=== PATIENT | female | born 1930 | race Caucasian/White ===

== ENCOUNTER 2018-03-12 02:44 | Emergency (ER) | payer MEDICARE ==
[~2018-03-12] VITALS: Ht 154.9 cm; Wt 53.1 kg
--- NOTE | 2018-03-12 03:00 | NUR ---
Pt bib ambulance with a bloody laceration on her scalp following an unwitnessed fall in her apartment. She is A, O/4, walks with a cane on baseline, breathing without difficulty to RA.
--- NOTE | 2018-03-12 03:10 | NUR ---
HL g20 right hand started, labs drawn. Pt cooperative
[2018-03-12 03:48] LABS: BASOPHILS # (AUTO) 0.1 /CMM (0.0-0.2); BASOPHILS % (AUTO) 0.7 % (0.0-2.0); EOSINOPHILS % (AUTO) 1.3 % (0.0-6.0); HEMATOCRIT 43 % (33-45); HEMOGLOBIN 14.1 g/dL (11.5-14.8); LYMPHOCYTES # (AUTO) 1.4 /CMM (0.8-4.8); LYMPHOCYTES % (AUTO) 15.2 % (20.0-44.0); MEAN CORPUSCULAR HGB CONC 33 g/dl (31.0-36.0); MEAN CORPUSCULAR VOLUME 92 fL (82-100); MONOCYTES # (AUTO) 0.6 /CMM (0.1-1.30); MONOCYTES % (AUTO) 7.1 % (2.0-12.0); NEUTROPHILS # (AUTO) 6.9 /CMM (1.8-8.9); NEUTROPHILS % (AUTO) 75.7 % (43.0-81.0); PLATELET COUNT (AUTO) 270 /CMM (150-450); RED BLOOD CELL COUNT(AUTO) 4.69 MIL/uL (4.0-5.2); WHITE BLOOD COUNT (AUTO) 9.1 K/uL (4.3-11.0)
--- NOTE | 2018-03-12 03:50 | NUR ---
Pt transported to Radiology for CT
[2018-03-12 03:59] LABS: CARBON DIOXIDE 29 mmol/L (21-32); CHLORIDE 105 mmol/L (98-107); CREATININE 0.7 mg/dL (0.6-1.3); GLUCOSE 109 mg/dL (74-106); POTASSIUM 4.6 mmol/L (3.5-5.1); SODIUM SERUM 143 mmol/L (136-145); UREA NITROGEN, BLOOD 13 mg/dL (7-18)
--- NOTE | 2018-03-12 04:00 | NUR ---
cleansed wound on scalp with NS, pat it dry with gauze, left open to air. Pt tolerated procedure
[2018-03-12 04:05] LABS: ALANINE AMINOTRANSFERASE 23 U/L (12-78); ALBUMIN 3.5 g/dL (3.4-5.0); ALKALINE PHOSPHATASE 72 U/L (46-116); ASPARTATE AMINOTRANSFERASE 20 U/L (15-37); BILIRUBIN,DIRECT 0.1 mg/dL (0.0-0.2); BILIRUBIN,TOTAL 0.7 mg/dL (0.2-1.0)
--- NOTE | 2018-03-12 04:07 | NUR ---
PT RETURNED FROM CT
--- NOTE | 2018-03-12 04:50 | NUR ---
Pt will be admitted to [facility] , Rm 115. Report given to [facility].
--- NOTE | 2018-03-12 05:00 | NUR ---
Pt resting, denies headache at this time, family at BS
--- NOTE | 2018-03-12 06:49 | NUR ---
PT ACCEPTED TO [facility] BY DR SERRATO. BED 201-B. # FOR REPORT [phone]. ETA 1 HR
--- NOTE | 2018-03-12 06:54 | NUR ---
Pt's family notified of transfer.
--- NOTE | 2018-03-12 07:30 | NUR ---
Called [facility] and gave report to [facility] [place].
--- NOTE | 2018-03-12 07:32 | NUR ---
Endorsed pt to [facility] [place], for MARILU.
[2018-03-12 09:15] VITALS: BP 140/80
== END 2018-03-12 09:24 | disposition short-term general hospital (02) ==
LOC: ER 02:47
DX: S01.01XA Laceration without foreign body of scalp, initial encounter (principal); R55 Syncope and collapse; J45.909 Unspecified asthma, uncomplicated; Z60.2 Problems related to living alone; W18.39XA Other fall on same level, initial encounter; Y93.89 Activity, other specified; Y92.89 Other specified places as the place of occurrence of the external cause; Y99.8 Other external cause status
CPT/HCPCS: 12001; 36415; 70450; 71045; 72125; 80048; 80076; 82962; 84484; 85025; 85730; 86850; 93005; 99285; A4606; A6403; L0172; Z7610